=== PATIENT | female | born 1960 | race Asian ===

== ENCOUNTER 2025-06-14 07:42 | Outpatient (CLI) | payer OTHER | END 2025-06-14 07:43 | disposition home or self-care (01) | LOC: SCSULT 07:42 | PROVIDERS: ATTEND Internal Medicine Gastroenterology | DX: B18.1 Chronic viral hepatitis B without delta-agent (principal); K80.20 Calculus of gallbladder without cholecystitis without obstruction; K76.0 Fatty (change of) liver, not elsewhere classified | CPT/HCPCS: 76705 ==